=== PATIENT | female | born 1945 | race Two or more races ===

== ENCOUNTER 2025-04-19 18:52 | Emergency (ER) | payer MEDICARE, MEDICAID, SELFPAY ==
[2025-04-19 19:09] VITALS: BP 105/67; PULSE 85; RESP 20; TEMP 36.9; O2SAT 96; BMI 35.5
--- NOTE | 2025-04-19 19:46 | EDNOTE_ITS ---
ED SOB =RME/HPI General Chief Complaint: Shortness of Breath/Dyspnea Stated Complaint: SOB X 4 months, can't lay flat Time Seen by Provider: 04/19/25 19:36 Arrival date/time: 04/19/25 18:52 RME / HPI RME / HPI Narrative: DR. NGUYEN MAIN ED EVALUATION: 79 y/o female presents to ED c/o worsening shortness of breath with mild chest pain x 2 months. She also reports LUE and left-sided facial numbness when laying on her left side. Patient experiences some relief of shortness of breath when she lies on her right side, but worse when laying flat on her back. Patient returned from [place] yesterday where she was seen and treated for shingles. She was prescribed multiple medications for pain management and an antiviral. No other concerns or complaints expressed at this time. Related Data Home Medications ?Medication ?Instructions ?Recorded ?Confirmed hydrochlorothiazide 25 mg tablet 25 mg PO QAM #0 tabs 11/09/14 omeprazole 40 mg capsule,delayed 40 mg PO QDAY ##0 02/18 release (Prilosec) sertraline 50 mg tablet (Zoloft) 50 mg PO QDAY #0 tabs 11/09/14 Alendronate Sodium * (FOSAMAX *) 70 mg PO Q7D #0 tabs 11/12/14 CALCIUM CARBONATE/VITAMIN D 600 - 1,200 mg PO QDAY ##0 11/12/14 (Calcarb 600 w/Vit D) Allergies Allergy/AdvReac Type Severity Reaction Status Date / Time No Known Allergies Allergy Mild NKA Uncoded 04/19/25 18:59 Review of Systems Review of Systems Systems Reviewed: All systems reviewed, normal except as documented Past Medical History Social History SMOKING STATUS: Never smoker ED Exam Narrative Physical exam: Generally patient is alert no obvious distress, heart regular rate and rhythm, lungs clear to auscultation and equal bilaterally, extremities no swelling, abdomen soft nontender, skin-a few scabbed over lesions to bilateral feet. Course Course Course Narrative: CXR is ordered for determining the etiology of shortness of breath. Quality Measures none Orders Category Date Time Status EKG (ED ONLY) *Do not use* NOW Care 04/19/25 19:50 Completed EKG (ED Only) Stat Exams 04/19/25 19:50 Draft XR chest 1V portable Stat Exams 04/19/25 19:50 Completed BNP [B-Type Natriuretic Peptide] Stat Lab 04/19/25 20:29 Completed CBC Stat Lab 04/19/25 20:29 Completed CMP [Comprehensive Metabolic Panel] Stat Lab 04/19/25 20:29 Completed Troponin I Stat Lab 04/19/25 20:29 Completed Vital Signs Vital signs: Vital Signs Temperature 98.5 F 04/19/25 19:09 Pulse Rate 85 04/19/25 19:09 Respiratory Rate 20 04/19/25 19:09 Blood Pressure 105/67 04/19/25 19:09 Pulse Oximetry (%) 96 04/19/25 19:09 Oxygen Delivery Method Room Air 04/19/25 19:09 Shortness of Breath / Dyspnea MDM Narrative MDM Narrative:: Scribe Attestation: Sue Haynes, am scribing for and in the presence of Dr. Nguyen. Provider Notation: Although this document has been carefully reviewed, there may still be some phonetic and other typographical errors.? These errors are purely grammatical due to imperfections in the software program and should not be construed in any way to? compromise the substance of the patient's medical care during this visit. EKG is nonischemic. Chest x-ray is unremarkable with the exception of an ectatic aorta. Troponin is not elevated. BNP is not elevated. Patient is not anemic. Renal function is normal. Liver function test are normal. Patient has not been experiencing chest pain. At this time it is uncertain what is causing the patient's orthopnea. Patient will be referred to her primary care physician for further treatment and evaluation. I do not believe this patient have a pulmonary embolism. O2 saturation on room air is 97 to 98% and the patient is not dyspneic tachypneic or tachycardic. Patient data External records reviewed:: [facility] previous records (No prior ED records available for review.) Clinical information provided by:: patient and family (Son) Social determinants that could affect healthcare access:: none Patient has the following chronic illnesses:: None reported How is presenting disease/condition affected by chronic disease/condition?: no chronic disease Evaluation data The following diagnostics were reviewed and interpreted by me:: lab results, radiology exam(s) and EKG tracing(s) Lab and/or radiology exams considered but not ordered:: None Interpretation Summary: RADIOLOGY Chest X-Ray: FINDINGS: No significant cardiac enlargement Notably or pulmonary edema Prominent osteopenia IMPRESSION: No active disease. Medications / Prescriptions Medications or Prescriptions considered but not ordered:: None Medication administrations:: See above if any. Consultations Consultation(s) initiated? (list below): No Diagnosis Shortness of Breath Differential Diagnosis: congestive heart failure, community acquired pneumonia and pulmonary embolism Most likely diagnosis given after review of the tests above:: Dyspnea Admission Indicated Admission indicated?: not indicated Explain why admission is indicated or not indicated:: Patient does not meet admission criteria. Admission Request Was there a request for admission?: No Disposition Plan Disposition Plan: Discharge Discharge Attestation Discharge Attestation: The patient and all family members were given an opportunity to ask questions and understood the discharge instructions. Discharge instructions specifically effects, indications for sooner follow up or return to the emergency department, and the expected course of current diagnosis. Patient condition: Stable Discharge Plan Plan Patient Disposition: HOME (Self Care) Prescriptions/Referrals Prescriptions/Med Rec: No Action omeprazole [Prilosec] 40 MG capsule,delayed release(DR/EC) 40 mg PO QDAY Qty: 0 Patient Comments: TO SUPPRESS GASTRIC SECRETIONS hydrochlorothiazide 25 MG tablet 25 mg PO QAM Qty: 0 sertraline [Zoloft] 50 MG tablet 50 mg PO QDAY Qty: 0 Alendronate Sodium * (FOSAMAX *) 70 MG tablet 70 mg PO Q7D Qty: 0 CALCIUM CARBONATE/VITAMIN D (Calcarb 600 w/Vit D) 600 MG tablet 600 - 1,200 mg PO QDAY Qty: 0 Referrals: Barak Kirk MD [Primary Care Provider] - In 1 week Problem List Clinical Impression: Dyspnea Patient/Caregiver Discharge Instructions Education Materials: ED Shortness of Breath (Dyspnea) Additional Instructions: Heart lung kidney and liver evaluation today appear to be normal. You are not anemic. You must follow-up with your doctor for further treatment and evaluation. Return to ER as needed or if condition worsens. Print Language: Portuguese Stand Alone Forms: [facility] Award Info., Patient Portal Info Letter
--- NOTE | 2025-04-19 19:50 | EKG_ITS ---
[facility] (Formerly [facility])[3] Test Date: 2025-04-19 Pat Name: JENNIFER JIMENEZ Department: Room: - Gender: Female [employer]: : 1945 Requested By: Brayden Emanuel Order Number: [id number] Reading MD: Brayden Emanuel Measurements Intervals [place] Rate: 71 P: 9 ME: 171 QRS: -61 QRSD: 94 T: 39 QT: 407 QTc: 442 Interpretive Statements SINUS RHYTHM PATTERN CONSISTENT WITH PULMONARY DISEASE INCOMPLETE RIGHT BUNDLE BRANCH BLOCK [90+ ms QRS DURATION, TERMINAL R IN V1/V2, 40+ ms S IN I/aVL/V4/V5/V6] LEFT ANTERIOR FASCICULAR BLOCK [QRS AXIS <= -45, QR IN I, RS IN II] No previous ECG available for comparison /[id number]/S0/[id number].pdf
--- NOTE | 2025-04-19 19:50 | XR_ITS ---
Examination: AP chest single view TECHNIQUE: AP portable chest single view Date and time: April 19, 2025 2002 hours Comparison November 09, 2014 INDICATIONS: Chest pain and shortness of breath today. FINDINGS: No significant cardiac enlargement Notably or pulmonary edema Prominent osteopenia IMPRESSION: No active disease.
[2025-04-19 21:11] LABS: Basophils # (Auto) 0.1 Thou/mm3 (0.0-0.2); Basophils % (Auto) 1 % (0-2.5); Eosinophils # (Auto) 0.4 Thou/mm3 (0.0-0.5); Eosinophils % (Auto) 5 % (0-10); Hematocrit 36.5 % (36.0-46.0); Hemoglobin 12.5 g/dL (12.0-16.0); Immature Granulocytes Auto 0.03 Thou/mm3 (0.00-0.00); Lymphocytes # (Auto) 2.1 Thou/mm3 (1.0-4.8); Lymphocytes % (Auto) 26 % (10-50); Mean Corpuscular HGB Conc 34.2 g/dl (31.0-37.0); Mean Corpuscular Hemoglobin 30.5 pg (25.0-35.0); Mean Corpuscular Volume 89 fL (80-100); Monocytes # (Auto) 1.0 Thou/mm3 (0.0-0.8); Monocytes % (Auto) 12 % (0-12); Neutrophils # (Auto) 4.5 Thou/mm3 (1.8-7.7); Neutrophils % (Auto) 56 % (37-80); Nucleated Red Blood Cell # 0.00 Thou/mm3 (0.00-0.00); Nucleated Red Blood Cell % 0 /100 WBC (0); Platelet Count 225 Thou/mm3 (140-440); RDW Standard Deviation 42.0 fL (36.4-46.3); Red Blood Count 4.10 Miln/mm3 (4.00-5.20); White Blood Count 8.1 Thou/mm3 (3.6-11.0)
[2025-04-19 21:35] LABS: B-Type Natriuretic Peptide 57 pg/mL (0-100)
[2025-04-19 21:37] LABS: Alanine Aminotransferase 14 U/L (10-49); Albumin, Serum 3.7 gm/dL (3.4-4.8); Albumin/Globulin Ratio 1.5 (1.2-2.2); Alkaline Phosphatase 54 U/L (46-116); Anion Gap 8 (7-16); Aspartate Amino Transferase 18 U/L (0-34); BUN/Creatinine Ratio 18 Ratio (12-20); Bilirubin,Total 0.4 mg/dL (0.3-1.2); Blood Urea Nitrogen 16 mg/dL (9-23); Calcium 8.7 mg/dL (8.3-10.6); Calcium (Corrected) 8.9 mg/dL (8.5-10.1); Carbon Dioxide 26.1 mMol/L (20.0-31.0); Chloride 105 mMol/L (98-107); Creatinine (Component) 0.9 mg/dL (0.6-1.3); Estimated Creatinine Clearance 50.2 mL/min (>60); Globulin 2.5 gm/dL (2.3-3.5); Glucose 86 mg/dL (74-106); Osmolality,Calculated 277 (275-295); Potassium 4.7 mMol/L (3.4-5.1); Sodium 139 mMol/L (136-145); Total Protein 6.2 gm/dL (5.7-8.2); Troponin I < 0.002 ng/mL (0.0-0.045); eGFR > 60 See Note
--- NOTE | 2025-04-19 21:39 | PC.NURSE ---
Pt resting comfortably in gurney, responds appropriate. sleeping. VS WNL
[2025-04-19 21:56] VITALS: BP 142/79; PULSE 69; RESP 12; TEMP 36.7; O2SAT 97
== END 2025-04-19 21:57 | disposition home or self-care (01) ==
PROVIDERS: Emergency Provider Emergency Medicine; PCP Family Medicine
DX: R06.00 Dyspnea, unspecified (principal)
CPT/HCPCS: 36415; 71045; 80053; 83880; 84484; 85025; 93005; 99283

== ENCOUNTER 2025-06-16 13:14 | Emergency (ER) | payer MEDICARE, MEDICAID, SELFPAY ==
[2025-06-16 13:42] VITALS: BP 97/67; PULSE 88; RESP 16; TEMP 36.5; O2SAT 98
--- NOTE | 2025-06-16 13:59 | XR_ITS ---
EXAMINATION: Ankle, right 3 views. Technique: Ankle AP, oblique, lateral 3 views Date and time of exam: June 16, 2025, 1428 hours INDICATIONS: Injury to the ankle 2 days ago, ankle pain. FINDINGS: Moderate osteopenia. No acute fracture No ankle dislocation IMPRESSION: No acute fracture or dislocation
--- NOTE | 2025-06-16 13:59 | XR_ITS ---
Examination: Duplex scan of the lower extremity, unilateral right Date and time of exam: June 16, 2025, 1416 hours INDICATIONS: Onset leg foot and ankle pain today Technique: Duplex scan of the extremity veins using B-mode/grayscale imaging and Doppler spectral analysis and color flow Attention is directed to internal echogenicity, compression and augmentation involving these veins, color flow assessment, spectral analysis Findings: Major deep venous structures in the extremity demonstrate normal course and caliber. There is no evidence of deep vein thrombosis. Normal color flow and spectral analysis Impression: Negative for DVT..
--- NOTE | 2025-06-16 14:01 | PD.EDRME ---
Rapid Medical Screening Exam RME Arrival date/time: 06/16/25 13:14 Chief Complaint: Ankle/Foot Injury Time Seen by Provider: 06/16/25 13:44 Vital signs: Vital Signs Temperature 97.7 F 06/16/25 13:42 Pulse Rate 88 06/16/25 13:42 Respiratory Rate 16 06/16/25 13:42 Blood Pressure 97/67 06/16/25 13:42 Pulse Oximetry (%) 98 06/16/25 13:42 Oxygen Delivery Method Room Air 06/16/25 13:42 RME Narrative: 79-year-old female complaining of right ankle pain and being unable to bear weight since last night which was atraumatic in nature. Patient does endorse that she had shingles 3 months ago however it felt much different. Patient is able to get around with a cane at this time. Denies fever. I briefly performed a screening evaluation to initiate work-up and expedite care. Complete history, physical exam, and plan of care is deferred to the provider in the main ED.
[2025-06-16 15:27] LABS: Albumin, Serum 4.1 gm/dL (3.4-4.8); Albumin/Globulin Ratio 1.6 (1.2-2.2); Alkaline Phosphatase 48 U/L (46-116); Anion Gap 11 (7-16); Aspartate Amino Transferase 14 U/L (0-34); BUN/Creatinine Ratio 13 Ratio (12-20); Bilirubin,Total 0.8 mg/dL (0.3-1.2); Blood Urea Nitrogen 10 mg/dL (9-23); C-Reactive Protein < 0.5 mg/dL (0.0-0.9); Calcium 9.3 mg/dL (8.3-10.6); Calcium (Corrected) 9.3 mg/dL (8.5-10.1); Carbon Dioxide 26.2 mMol/L (20.0-31.0); Chloride 104 mMol/L (98-107); Creatinine (Component) 0.8 mg/dL (0.6-1.3); Globulin 2.6 gm/dL (2.3-3.5); Glucose 94 mg/dL (74-106); Osmolality,Calculated 280 (275-295); Potassium 4.3 mMol/L (3.4-5.1); Sodium 141 mMol/L (136-145); Total Protein 6.7 gm/dL (5.7-8.2); eGFR > 60 See Note
[2025-06-16 15:36] LABS: Alanine Aminotransferase 10 U/L (10-49)
[2025-06-16 16:11] LABS: Sed Rate (ESR) 15 mm/hr (0-30)
[2025-06-16 16:40] LABS: Basophils # (Auto) 0.1 Thou/mm3 (0.0-0.2); Basophils % (Auto) 1 % (0-2.5); Eosinophils # (Auto) 0.1 Thou/mm3 (0.0-0.5); Eosinophils % (Auto) 2 % (0-10); Hematocrit 40.3 % (36.0-46.0); Hemoglobin 13.9 g/dL (12.0-16.0); Immature Granulocytes Auto 0.03 Thou/mm3 (0.00-0.00); Lymphocytes # (Auto) 2.3 Thou/mm3 (1.0-4.8); Lymphocytes % (Auto) 26 % (10-50); Mean Corpuscular HGB Conc 34.5 g/dl (31.0-37.0); Mean Corpuscular Hemoglobin 30.3 pg (25.0-35.0); Mean Corpuscular Volume 88 fL (80-100); Monocytes # (Auto) 1.2 Thou/mm3 (0.0-0.8); Monocytes % (Auto) 14 % (0-12); Neutrophils # (Auto) 5.2 Thou/mm3 (1.8-7.7); Neutrophils % (Auto) 58 % (37-80); Nucleated Red Blood Cell # 0.00 Thou/mm3 (0.00-0.00); Nucleated Red Blood Cell % 0 /100 WBC (0); Platelet Count 251 Thou/mm3 (140-440); RDW Standard Deviation 39.8 fL (36.4-46.3); Red Blood Count 4.59 Miln/mm3 (4.00-5.20); White Blood Count 8.9 Thou/mm3 (3.6-11.0)
--- NOTE | 2025-06-16 17:15 | EDNOTE_ITS ---
Lower Extremity Injury RME/HPI General Chief Complaint: Ankle/Foot Injury Stated Complaint: Right foot/ right ankle pain since last night Time Seen by Provider: 06/16/25 13:44 Arrival date/time: 06/16/25 13:14 RME / HPI RME / HPI Narrative: 79-year-old female complaining of right ankle pain and being unable to bear weight since last night which was atraumatic in nature. Patient does endorse that she had shingles 3 months ago however it felt much different. Patient is able to get around with a cane at this time. Denies fever, numbness, tingling, weakness. Related Data Home Medications ?Medication ?Instructions ?Recorded ?Confirmed hydrochlorothiazide 25 mg tablet 25 mg PO QAM #0 tabs 11/09/14 omeprazole 40 mg capsule,delayed 40 mg PO QDAY ##0 02/18 release (Prilosec) sertraline 50 mg tablet (Zoloft) 50 mg PO QDAY #0 tabs 11/09/14 Alendronate Sodium * (FOSAMAX *) 70 mg PO Q7D #0 tabs 11/12/14 CALCIUM CARBONATE/VITAMIN D 600 - 1,200 mg PO QDAY ##0 11/12/14 (Calcarb 600 w/Vit D) Allergies Allergy/AdvReac Type Severity Reaction Status Date / Time No Known Allergies Allergy Mild NKA Uncoded 06/16/25 13:21 Review of Systems Review of Systems Systems Reviewed: All systems reviewed, normal except as documented ED Exam Narrative Physical exam: Constitutional: Vital Signs Reviewed. Well appearing. No acute distress. Not toxic appearing. Head: Normocephalic, atraumatic. Eyes: Conjunctiva clear. ENT: Mucous membranes moist. Neck: Trachea midline. Normal range of motion. No nuchal rigidity. Respiratory: Normal effort. No respiratory distress or accessory muscle use. Neuro: Alert and oriented. Speech normal. No focal gross motor or sensory deficits observed. Skin: Warm, dry, normal color. Extremities: Right ankle with tenderness, limited range of motion, and strength 4+ out of 5 secondary to pain. No erythema or warmth. Dorsalis pedis pulse 2+ regular rate and rhythm and compartments are soft Psych: Pleasant. Normal affect. Cooperative. Course Quality Measures none Orders Category Date Time Status US venous doppler LE RT Stat Exams 06/16/25 13:59 Completed XR ankle comp RT min 3V Stat Exams 06/16/25 13:59 Completed CBC Stat Lab 06/16/25 14:49 Completed CMP [Comprehensive Metabolic Panel] Stat Lab 06/16/25 14:49 Completed CRP [C-Reactive Protein] Stat Lab 06/16/25 14:49 Completed Sed Rate (ESR) Stat Lab 06/16/25 14:49 Completed HYDROcodone*/APAP 5/325 [[place] 5/325] Med 06/16/25 16:52 Discontinued 1 tab PO X1 ONE Reevaluation(s) Reevaluation #1: At the time of reassessment, the patient remains alert and oriented ?3 with GCS 15. Vitals are normal, pain is controlled, and the patient is tolerating oral intake without nausea or vomiting. The patient is agreeable to discharge and verbalizes understanding of the diagnosis, studies, treatment plan, medications (including side effects/precautions), and strict ER return precautions as discussed in the ED. All concerns were addressed, and the patient is comfortable with the plan. Vital Signs Vital signs: Vital Signs Temperature 97.7 F 06/16/25 13:42 Pulse Rate 88 06/16/25 13:42 Respiratory Rate 16 06/16/25 13:42 Blood Pressure 97/67 06/16/25 13:42 Pulse Oximetry (%) 98 06/16/25 13:42 Oxygen Delivery Method Room Air 06/16/25 13:42 Extremity Injury, Lower MDM Narrative MDM Narrative:: MDM Concern for arthritis versus right ankle strain versus sprain versus occult fracture or dislocation Doubt septic arthritis given no severe erythema, effusion or warmth X-ray without gross displaced fracture however arthritis is noted Lab work without severe metabolic or electrolyte abnormality acute inflammatory markers are within normal limits Ultrasound without DVT Right lower extremity remains distally neurovascularly intact with soft compartments Patient eloped Patient data External records reviewed:: None Clinical information provided by:: patient Social determinants that could affect healthcare access:: none Patient has the following chronic illnesses:: As noted How is presenting disease/condition affected by chronic disease/condition?: uneffected by Evaluation data The following diagnostics were reviewed and interpreted by me:: lab results and radiology exam(s) Lab and/or radiology exams considered but not ordered:: Labs and radiology considered, but not ordered as they were not clinically indicated at this time. Interpretation Summary: As noted Medications / Prescriptions Medications or Prescriptions considered but not ordered:: I considered prescription management (both outpatient prescriptions AND drug treatment in the ER) and decided that this was necessary and was prescribed as charted. Medication administrations:: Medication Administration History Discontinued Medications Hydrocodone Bitart/Acetaminophen (Hydrocodone/[place] 5/325 Tablet) 1 tab PO X1 ONE Stop: 06/16/25 16:53 As noted Consultations Consultation(s) initiated? (list below): No Diagnosis Extremity Injury, Lower Differential Diagnosis: ankle sprain and strain, ankle fracture and other Most likely diagnosis given after review of the tests above:: Inflammatory arthritis versus ankle sprain or strain Admission Indicated Admission indicated?: not indicated Admission Request Was there a request for admission?: No Disposition Plan Disposition Plan: other (specify) Discharge Plan Plan Patient Disposition: Elopement Prescriptions/Referrals Prescriptions/Med Rec: No Action omeprazole [Prilosec] 40 MG capsule,delayed release(DR/EC) 40 mg PO QDAY Qty: 0 Patient Comments: TO SUPPRESS GASTRIC SECRETIONS hydrochlorothiazide 25 MG tablet 25 mg PO QAM Qty: 0 sertraline [Zoloft] 50 MG tablet 50 mg PO QDAY Qty: 0 Alendronate Sodium * (FOSAMAX *) 70 MG tablet 70 mg PO Q7D Qty: 0 CALCIUM CARBONATE/VITAMIN D (Calcarb 600 w/Vit D) 600 MG tablet 600 - 1,200 mg PO QDAY Qty: 0 Referrals: No Primary/Family,Physician [Primary Care Provider] - In 1 week Problem List Clinical Impression: Acute ankle pain Patient/Caregiver Discharge Instructions Print Language: Gia FERRARI/IGGY Supervising Physician VEGA/IGGY Supervising Physician: Dr. Tapia
--- NOTE | 2025-06-16 17:38 | PC.NURSE ---
PT CALLED IN LOBBY AND OUTSIDE OF ED LOBBY; NO RESPONSE AT THIS TIME
== END 2025-06-16 17:38 | disposition left against medical advice (07) ==
PROVIDERS: Physician Assistant; Emergency Provider Emergency Medicine
DX: M25.571 Pain in right ankle and joints of right foot (principal)
CPT/HCPCS: 36415; 73610; 80053; 85025; 85652; 86140; 93971; 99283

== ENCOUNTER 2025-06-25 12:01 | Emergency (ER) | payer MEDICARE, MEDICAID, SELFPAY ==
[2025-06-25 12:46] VITALS: BP 129/70; PULSE 75; RESP 18; TEMP 36.6; O2SAT 95
--- NOTE | 2025-06-25 12:56 | XR_ITS ---
EXAMINATION: Right ankle 2 views TECHNIQUE: AP lateral right ankle 2 views Date and time: June 25, 2025, 1304 hours INDICATIONS: Patient fell today with injury to right ankle, right ankle pain FINDINGS: No acute fracture Small plantar bony calcaneal spur. Lateral malleolar soft tissue swelling IMPRESSION: No acute ankle fracture Please see the full report
--- NOTE | 2025-06-25 12:56 | XR_ITS ---
Examination: Foot, 6, 3 views Technique: AP, oblique, lateral views foot, 3 views Date and time of exam: June 25, 2025, 12:58 p.m. INDICATIONS: Patient fell today with injury to the right foot, right foot pain FINDINGS: Acute fracture base fifth metatarsal without significant displacement Small plantar bony calcaneal spur Prominent osteopenia IMPRESSION: Acute fracture base fifth metatarsal
--- NOTE | 2025-06-25 14:39 | PD.EDLOWEX ---
Lower Extremity Injury RME/HPI General Chief Complaint: Extremity Injury, Lower Stated Complaint: RIGHT LEG PAIN Time Seen by Provider: 06/25/25 12:34 Arrival date/time: 06/25/25 12:01 This is a case of 79-year-old female with no medical history came in in the emergency room due to right ankle and right foot pain history of present illness today when the patient was walking tripped and fell causing him to twist her right ankle and foot sustaining pain and swelling patient denies any head neck chest or abdominal injury no loss of consciousness Limitations: no limitations Related Data Home Medications ?Medication ?Instructions ?Recorded ?Confirmed hydrochlorothiazide 25 mg tablet 25 mg PO QAM #0 tabs 11/09/14 omeprazole 40 mg capsule,delayed 40 mg PO QDAY ##0 11/09/14 release (Prilosec) sertraline 50 mg tablet (Zoloft) 50 mg PO QDAY #0 tabs 11/09/14 Alendronate Sodium * (FOSAMAX *) 70 mg PO Q7D #0 tabs 11/12/14 CALCIUM CARBONATE/VITAMIN D 600 - 1,200 mg PO QDAY ##0 11/12/14 (Calcarb 600 w/Vit D) Previous Rx's ?Medication ?Instructions ?Recorded tramadol 25 mg tablet 25 mg PO Q6H PRN pain #12 tabs 06/25/25 Allergies Allergy/AdvReac Type Severity Reaction Status Date / Time No Known Allergies Allergy Mild NKA Uncoded 06/25/25 12:02 Review of Systems Review of Systems Systems Reviewed: All systems reviewed, normal except as documented Constitutional Constitutional: Reports system reviewed and no additional complaints, except as documented and Reports as per HPI Cardiovascular Cardiovascular: Reports system reviewed and no additional complaints, except as documented and Reports as per HPI Respiratory Respiratory: Reports system reviewed and no additional complaints, except as documented and Reports as per HPI Gastrointestinal Gastrointestinal: Reports system reviewed and no additional complaints, except as documented and Reports as per HPI Musculoskeletal Musculoskeletal: Reports system reviewed and no additional complaints, except as documented and Reports as per HPI Neurologic Neurologic: Reports system reviewed and no additional complaints, except as documented and Reports as per HPI Past Medical History Social History SMOKING STATUS: Never smoker ED Exam General Limitations: Present no limitations General appearance: Present alert, in no apparent distress and other (Patient is awake alert oriented not in distress nontoxic looking well-hydrated well-nourished) Head Head exam: Present atraumatic, normocephalic and normal inspection Eye Eye exam: Present normal appearance, PERRL and EOMI ENT ENT exam: Present normal exam, normal oropharynx and mucous membranes moist Neck Neck exam: Present normal inspection, full ROM and trachea midline; Absent tenderness, meningismus, lymphadenopathy or thyromegaly Chest Chest inspection: Present normal inspection and symmetric chest wall rise; Absent tenderness Respiratory Respiratory exam: Present normal lung sounds bilaterally; Absent respiratory distress, wheezes, stridor, accessory muscle use or prolonged expiratory phase Cardiovascular Cardiovascular exam: Present regular rate, normal rhythm and normal heart sounds; Absent bradycardia, tachycardia, irregular rhythm, systolic murmur or diastolic murmur Abdominal Exam Abdominal exam: Present soft and normal bowel sounds; Absent distention, tenderness, guarding, rebound, rigidity, diminished bowel sounds, hyperactive bowel sounds, hypoactive bowel sounds or organomegaly Extremities Exam Extremities exam: Present normal inspection and full ROM Expanded Lower Extremity Exam Ankle exam: Present tenderness, swelling and other (Moderate tenderness right lateral ankle with mild swelling no crepitation no deformity no redness no cellulitis ROM intact pulses were full and equal capillary refill less than 2 seconds sensory intact no calf tenderness negative Mcmillan signs negative Homans signs Achilles tendon intact); Absent abrasion, laceration, ecchymosis, deformity, crepitus, dislocation, erythema, tenderness over talofibular lig or anterior draw sign Foot/toe exam: Present tenderness, swelling and other (Moderate tenderness on the dorsal aspect of the right foot with swelling ROM is limited due to pain pulses were full and equal capillary refill less than 2 seconds no cellulitis no crepitation no deformity); Absent abrasion, laceration, ecchymosis, deformity, crepitus, dislocation, erythema, amputation, puncture wound, foreign body, calcaneal tenderness, tenderness at base of 5th metatarsal, nail avulsion or subungual hematoma Back Exam Back exam: Present normal inspection and full ROM Neurological Exam Neurological exam: Present alert, oriented X3, CN II-XII intact, reflexes normal and other (Gait is unsteady due to pain on the right ankle and foot); Absent normal gait or motor sensory deficit Psychiatric Psychiatric exam: Present normal affect and normal mood Skin Skin exam: Present warm, dry, intact and normal color Course Quality Measures none Orders Category Date Time Status Splint / Immobilizer STAT Care 06/25/25 14:33 Active XR ankle RT 2V Stat Exams 06/25/25 12:56 Completed XR foot comp RT min 3V Stat Exams 06/25/25 12:56 Completed HYDROcodone*/APAP 5/325 [[place] 5/325] Med 06/25/25 14:33 Discontinued 1 tab PO X1 ONE Vital Signs Vital signs: Vital Signs Temperature 97.8 F 06/25/25 12:46 Pulse Rate 75 06/25/25 12:46 Respiratory Rate 18 06/25/25 12:46 Blood Pressure 129/70 06/25/25 12:46 Pulse Oximetry (%) 95 06/25/25 12:46 Oxygen Delivery Method Room Air 06/25/25 12:46 Oxygen saturation is 95% in room air Extremity Injury, Lower MDM Narrative MDM Narrative:: This is a case of 79-year-old female with no medical history came in in the emergency room due to right ankle and right foot pain history of present illness today when the patient was walking tripped and fell causing him to twist her right ankle and foot sustaining pain and swelling patient denies any head neck chest or abdominal injury no loss of consciousness physical examination patient is awake alert oriented not in distress nontoxic looking neurological exam is normal and unremarkable patient noted to have moderate tenderness and swelling on the right ankle no crepitation no deformity no cellulitis no redness negative Mcmillan signs negative Homans signs no calf tenderness patient also noted to have dorsal foot tenderness and swelling no crepitation no deformity no redness no cellulitis ROM is limited pulses were full and equal capillary refill less than 2 seconds sensory is intact the rest of the physical examination neurological exam is normal and unremarkable x-ray showed right ankle no fracture no dislocation but with soft tissue swelling on the right lateral ankle patient right foot x-ray showed a acute fracture of the fifth metatarsal bone splint was applied patient tolerated well neurovascular intact patient was given [place] here in the emergency room and was prescribed with tramadol as needed for pain they were advised to follow-up with PCP to be referred to Ortho for further evaluation and treatment of the foot fracture recurrence persistent worsening symptoms or any emergent concern return precaution the ER was advised daughter will continue RICE treatment at home Patient was discharged with comfortable condition walking with stable gait. Patient verbalized no further complains explained diagnosis and answered patient question. Patient is comfortable with the proposed management plan including the need to follow up with his/her primary care physician and any specialist if applicable Discussed patient for any urgent condition or worsening sx, He/She needed to go to emergency room immediately or call 911. Patient acknowledge the responsibility to follow up as instructed and to monitor her/his symptoms. For any persistence of the symptoms for more than 3-5 days return precaution advised. Discussed the result of the test and was given printed discharge instruction Patient data External records reviewed:: [facility] previous records Clinical information provided by:: patient Social determinants that could affect healthcare access:: none Patient has the following chronic illnesses:: None How is presenting disease/condition affected by chronic disease/condition?: no chronic disease Evaluation data The following diagnostics were reviewed and interpreted by me:: radiology exam(s) Lab and/or radiology exams considered but not ordered:: Reviewed Interpretation Summary: Reviewed Medications / Prescriptions Medications or Prescriptions considered but not ordered:: Given Medication administrations:: Medication Administration History Discontinued Medications Hydrocodone Bitart/Acetaminophen (Hydrocodone/Apap 5/325 Tablet) 1 tab PO X1 ONE Stop: 06/25/25 14:34 Given Consultations Consultation(s) initiated? (list below): No Diagnosis Extremity Injury, Lower Differential Diagnosis: ankle sprain and strain, fracture of toe, ankle fracture and other (Foot fracture) Most likely diagnosis given after review of the tests above:: Metatarsal fracture ankle Admission Indicated Admission indicated?: not indicated Explain why admission is indicated or not indicated:: Not indicated Admission Request Was there a request for admission?: No Admission Attestation Admission request attestation: Not indicated Disposition Plan Disposition Plan: Discharge Discharge Attestation Discharge Attestation: The patient and all family members were given an opportunity to ask questions and understood the discharge instructions. Discharge instructions specifically effects, indications for sooner follow up or return to the emergency department, and the expected course of current diagnosis. Patient condition: Stable Discharge Plan Plan Patient Disposition: HOME (Self Care) Patient condition on transfer: Stable Prescriptions/Referrals Prescriptions/Med Rec: New tramadol 25 mg tablet 25 mg PO Q6H MDD max 4 tabs per day PRN (Reason: pain) Qty: 12 0RF No Action omeprazole [Prilosec] 40 MG capsule,delayed release(DR/EC) 40 mg PO QDAY Qty: 0 Patient Comments: TO [employer]PPRESS [employer] SECRETIONS hydrochlorothiazide 25 MG tablet 25 mg PO QAM Qty: 0 sertraline [Zoloft] 50 MG tablet 50 mg PO QDAY Qty: 0 Alendronate Sodium * (FOSAMAX *) 70 MG tablet 70 mg PO Q7D Qty: 0 CALCIUM CARBONATE/VITAMIN D (Calcarb 600 w/Vit D) 600 MG tablet 600 - 1,200 mg PO QDAY Qty: 0 Problem List Clinical Impression: Ankle sprain, Closed fracture of fifth metatarsal bone Patient/Caregiver Discharge Instructions Education Materials: Fifth Metatarsal Fx, ED Splint Care, Fiberglass, ED Ankle Sprain (Adult), ED RICE Additional Instructions: Follow-up with your primary care physician in 2 days for reevaluation and to be referred to orthopedic surgeon for further evaluation and treatment of your fifth metatarsal fracture right foot worsening symptoms or any emergent concerns such as numbness weakness tingling sensation or swelling return to the emergency room immediately or call 911 ice pack every 2 hours for 20 minutes for 24 hours then alternate with warm compress no weightbearing on the right ankle and foot use of crutches for ambulation keep the splint in place until cleared by your primary care physician Print Language: Colombian Stand Alone Forms: [facility] Award Info., Patient Portal Info Letter PA/INSTANTIZER OPERATOR Supervising Physician PA/INSTANTIZER OPERATOR Supervising Physician: Dr. Patterson
[2025-06-25] MEDS: HYDROcodone/APAP 5/325 TABLET 1 TAB PO (15:13)
== END 2025-06-25 15:59 | disposition home or self-care (01) ==
LOC: SERX 14:48
PROVIDERS: Emergency Provider Emergency Medicine
DX: S92.351A Displaced fracture of fifth metatarsal bone, right foot, initial encounter for closed fracture (principal); W01.0XXA Fall on same level from slipping, tripping and stumbling without subsequent striking against object, initial encounter
CPT/HCPCS: 29515; 73600; 73630; 99283; A9270